=== PATIENT | female | born 1940 | race Caucasian/White ===

== ENCOUNTER → 2018-03-03 14:53 | Outpatient (CLI) | payer MEDICARE, SELFPAY ==
--- NOTE | 2018-03-03 | DI.MRI.S_ITS ---
PROCEDURE: MR KNEE LT WO CON INDICATIONS: PRIMARY OSTEOARTHRITIS OF LEFT KNEE. PAIN TECHNIQUE: Noncontrast sagittal PD fast spin echo and T2 fast spin echo with fat saturation, sagittal 3-D FLASH with fat saturation; coronal T1 spin echo and PD fast spin echo with fat saturation, and axial PD fast spin echo with fat saturation through the knee. COMPARISON: None. FINDINGS: Image quality: Excellent. Menisci: Medial extrusion of the medial meniscus. Severe degenerative tearing and fragmentation of the medial and lateral menisci. Cruciate ligaments: The posterior cruciate ligament is intact. Full-thickness anterior cruciate ligament tearing is present. Medial structures: The medial collateral ligament demonstrates mild T2 signal elevation at the femoral insertion site and moderate surrounding T2 signal elevation. The posterior oblique ligament, semimembranosus tendon insertions, oblique popliteal ligament, and meniscocapsular junction appear intact. Visualized portions of the pes anserinus tendons appear normal. Mild T2 signal elevation adjacent to the tibial insertion of the semimembranosus. No abnormal bursal fluid. Lateral structures: The lateral collateral ligament demonstrates mild T2 signal elevation at the femoral insertion site. The long and short heads of the biceps femoris tendon appear intact. The popliteus tendon appears normal; the popliteofibular ligament appears intact. The posterosuperior and anteroinferior popliteomeniscal fascicles appear intact. The arcuate and fabellofibular ligaments appear intact, on either side of the lateral inferior geniculate artery. Iliotibial band appears normal. Anterior structures: The quadriceps and patellar tendons appear intact. Patellar alignment is normal. No femoral trochlear dysplasia or ventral trochlear prominence. No edema in the infrapatellar fat pad. Bones and cartilage: No bone marrow contusions or fractures. Severe tricompartmental periarticular osteophyte formation is present. Multiple subchondral cysts and mild degenerative marrow edema within the weightbearing aspect of the medial lateral femoral condyles, and medial and lateral tibial plateaus. Severe diffuse articular cartilage loss overlies the weightbearing aspects of the medial and lateral compartments. Moderate articular cartilage loss overlies the lateral patellar facet and lateral femoral trochlea. Mild articular cartilage loss overlies the medial femoral trochlea. Joint space: There is a moderate knee joint effusion and a small Patino's cyst. Multiple intra-articular loose bodies are present, predominantly located within the suprapatellar recess, largest of which measures 12 mm diameter. 35mm ganglion cyst at the posterior aspect of the intercondylar notch is present. Normal appearing synovial plicae are incidentally noted. IMPRESSION: 1. Severe tricompartmental osteoarthritis with associated articular cartilage loss. 2. Knee joint effusion and multiple intra-articular loose bodies. Small Patino's cyst. Small ganglion cyst posterior to the intercondylar notch. 3. Full-thickness anterior cruciate ligament tear. 4. Severe degenerative tearing and fragmentation of the medial and lateral menisci. 5. Partial-thickness tears of the medial and lateral collateral ligaments. 6. Insertional tendinitis of the semimembranosus. Dictated by: Bee Peng M.D. on 03/04/2018 at 9:43 Approved by: Bee Peng M.D. on 03/04/2018 at 9:53
== END ==
PROVIDERS: Family Provider Physician Assistant; PCP Physician Assistant; Visit Provider Orthopaedic Surgery
DX: S83.512A Sprain of anterior cruciate ligament of left knee, initial encounter (principal); M17.12 Unilateral primary osteoarthritis, left knee; M25.462 Effusion, left knee; M23.42 Loose body in knee, left knee; M71.22 Synovial cyst of popliteal space [Baker], left knee; M67.462 Ganglion, left knee; M23.201 Derangement of unspecified lateral meniscus due to old tear or injury, left knee; M23.204 Derangement of unspecified medial meniscus due to old tear or injury, left knee; M76.892 Other specified enthesopathies of left lower limb, excluding foot
CPT/HCPCS: 73721

== ENCOUNTER 2018-05-05 10:17 | Observation (INO) | payer MEDICARE, SELFPAY ==
[2018-04-18 10:37] VITALS: BMI 33.3
[2018-05-04] VITALS (15 sets, daily range): BP systolic 95–163; BP diastolic 43–86; PULSE 54–70; RESP 11–17; TEMP 35.8–37.1; O2SAT 94–100; BMI 33.3
--- NOTE | 2018-05-04 | DI.RAD.S_ITS ---
PROCEDURE: XR KNEE LT 1TO2V INDICATIONS: TOTAL LEFT KNEE TECHNIQUE: 2 view(s) of the knee acquired. COMPARISON: [facility], MR, MR KNEE LT WO CON, 03/03/2018, 15:11. FINDINGS: Bones: Patient is status post knee joint arthroplasty. Hardware components are in expected positions. Visualized bony structures are intact. Soft tissues: Overlying postoperative changes are noted. Expected postoperative changes within the overlying soft tissues are present there is a soft tissue edema, air, and fluid. No unexpected radiopaque foreign bodies are evident. Skin jonel are seen along the anterior midline aspect of the knee. IMPRESSION: Expected postsurgical changes related to a total left knee arthroplasty. Dictated by: Surjit Nuno M.D. on 05/04/2018 at 9:38 Approved by: Surjit Nuno M.D. on 05/04/2018 at 9:39
[2018-05-04] MEDS: ACETAMINOPHEN 325 MG TABLET 975 MG PO ×3 (07:01→20:23)
[2018-05-04] MEDS: PREGABALIN 75 MG CAPSULE PO (07:01)
[2018-05-04] MEDS: CELECOXIB 200 MG CAPSULE PO (07:03)
[2018-05-04] MEDS: LACTATED RINGERS 1,000 ML 42 ML IV (07:10)
--- NOTE | 2018-05-04 07:31 | SUR.PREOP ---
SERGE IN TO SEE PT AND IN AWARE OF THE SMALL SKKIN
--- NOTE | 2018-05-04 07:31 | SUR.PREOP ---
DR VALENTINE IN TO SEE PT AND IS AWARE AND ASSESSED THE SKIN SCRAPS/ ABRASIONS ON THE LEFT KNEE.
--- NOTE | 2018-05-04 07:39 | PM.PREOP ---
Pre-operative Note Interval Note Pre-op Check: Yes History & Physical Reviewed by Physician and Yes Exam Performed Changes: Yes H&P completed within 30 days and has changed as indicated here:: Slight healed rash on lateral knee. No signs of infection.
--- NOTE | 2018-05-04 07:41 | PM.OP.1 ---
Operative Date/Time/Diagnoses Date of procedure: 05/04/18 Time of procedure: 09:59 Pre-op diagnosis: Severe left knee osteoarthritis Post-op diagnosis: same Procedure & Clinicians Procedure: Left total knee arthroplasty Same procedure as scheduled: Yes Indications: The patient presents today for total knee arthroplasty after failure of conservative treatment. The nature of the procedure including the risks and benefits, alternatives, postoperative course and expected outcome were discussed and all questions answered. Consent was obtained. Operative site confirmed and marked. Surgeon: Hipolito Albarran River Rafting Guide: Mike Schumacher Anesthesia Type: General, Spinal and Local Operative Notes Findings: Severe arthritis with a valgus wear pattern. The bone was extremely softer. Closure Type: primary Specimen(s): none sent Implants & Drains: [employer] BCS: 6 femoral component, 5 tibial component, 9 mm BCS polyethylene tray and 35 x 9 mm round patella Applied: implant(s) Blood products transfused: none Tourniquet time (min): 22 Procedure in detail: The patient was taken to the operative suite and placed under spinal anesthesia. The patient was given prophylactic antibiotics prior to surgery. The patient was also given tranexamic acid, 1 g, just prior to surgery for postoperative hemostasis. The lateral knee was prepped and the joint injected with 20 mL of 1% Lidocaine with epinephrine. The knee was then prepped and draped in usual sterile fashion. The leg was exsanguinated with an Esmarch dressing and the tourniquet raised to 250 torr. A 15 cm anterior incision was made. Next a medial trivector arthrotomy was made. The extensor mechanism was marked to ensure accurate repair. Initial exposing dissection was carried out medially and laterally. The knee was then extended and the patellar thickness was measured and a cut made removing approximately 9 mm of bone. The patella was then sized and drilled. Some excess lateral bone was excised and the patellofemoral ligament released. The knee was then flexed and the intramedullary femoral guide juana placed. The distal femoral cut was made in 6 ? of valgus at the + 0 position. The femoral size was measured and the appropriate cutting block was then placed and the anterior, posterior and chamfer cuts made. The extra medullary tibial alignment juana was then placed along the anatomic axis of the tibia appropriating the normal slope. The guide was set to remove approximately 8 mm from the less affected medial side. The proximal tibial cut was then made with an oscillating saw. All meniscus and bony debris was then removed. Flexion extension gaps were checked. The knee was tight laterally in flexion and extension as expected from her wear pattern. The knee was also tighter in extension and flexion. Two more mm of distal femur were resected. A lateral release was performed using a 15 blade in a pie crust technique. This nicely even the medial lateral gaps both in flexion and extension. The soft tissues were then injected with a combination of 20 mL of half percent Marcaine with epinephrine and 20 mL of Exparel. The trial components were then placed. The knee went into full extension and flexion beyond 120?. There was excellent medial- lateral balance throughout motion. Patellar tracking was excellent. The trial components were removed and the knee was cleansed with Pulsavac irrigation and dried. The final components were cemented in with high viscosity vacuum mixed bone cement with antibiotics. The knee was held in extension and the patellar clamp until the cement had adequately cured. The knee was irrigated and inspected for any further debris. The knee was then irrigated with dilute Betadine solution. The extensor mechanism was closed with 5 interrupted #1 Vicryl sutures in 90 degrees of flexion. The joint was then injected with a combination of 1 g of tranexamic acid and 20 mL of quarter percent Marcaine with epinephrine. The subcutaneous tissue was closed with 2-0 Vicryl. The skin was closed with jonel and surgical adhesive. An Aquacell dressing and Keyur wrap were then applied. The patient tolerated the procedure well and was returned to recovery room in good condition. Complications: none Condition: stable Disposition: PACU Plan for aftercare: [facility] protocol. Plan discharge to home tomorrow.
[2018-05-04] MEDS: CEFAZOLIN 1 GM VIAL 2 GM IV (07:50)
[2018-05-04] MEDS: LIDOCAINE 1% W/EPI INJ 20 ML INJ (08:26)
--- NOTE | 2018-05-04 08:51 | SUR.OPER ---
Supine on padded OR bed. Pillow under head, arms secured on padded armboards <90 degree abduction. Safety belt across torso. Non-operative leg secured with tape over blanket over lower leg. Operative leg secured in DeMayo/Artie positioner. Foam padded brace at thigh of operative leg.
[2018-05-04] MEDS: TRANEXAMIC ACID 1,000 MG VIAL 2000 MG INJ (09:04)
[2018-05-04] MEDS: BUPIVACAINE 0.5% W/ EPI (PF) 20 ML, BUPIVACAINE LIPOSOME 266 MG, SODIUM CHLORIDE 0.9% 2... INJ (09:05)
[2018-05-04] MEDS: POVIDONE-IODINE 15 ML, SODIUM CHLORIDE 0.9% 250 ML TOP (09:06)
[2018-05-04] MEDS: ONDANSETRON 4 MG/2 ML INJ IV (10:16)
[2018-05-04] MEDS: LACTATED RINGERS 1,000 ML 125 ML IV ×2 (12:11→19:39)
[2018-05-04] MEDS: CHOLESTYRAMINE/ASPARTAME 4 GM PACK PO (12:12)
--- NOTE | 2018-05-04 12:24 | PC.ADMIT ---
Addendum entered by Whit Mendez R.N. 05/04/18 15:42: Pt remains without nausea, restarted home cholstrine drink mix, per Pt request. Hx of chronic diarrhea. Original Note: Admission Note: The patient,Tammy Cordero,77 y/o, was given written information regarding hospital policies, unit procedures and contact persons. Patient's smoking status: Never smoker. Daughter at bedside for review of policies. Denies nausea, snacking, BT active and lungs CTA. Cont pulse ox in place, RA 98% Pt aware of POC, [facility] Patient. Reviewed plans for pain control and mobilizing today. BA for increased fall risk. Fall with injury to R shoulder this year, delaying this procedure. Call light in reach. Vital Signs - 8 hr 05/04/18 07:06 05/04/18 10:00 05/04/18 10:05 Temperature 98.2 F 98.8 F Pulse Rate 70 64 63 Respiratory Rate 16 17 12 Blood Pressure 163/86 H 121/70 107/59 L Pulse Oximetry 100 96 95 05/04/18 10:10 05/04/18 10:15 05/04/18 10:20 Temperature Pulse Rate 62 62 60 Respiratory Rate 12 11 L 14 Blood Pressure 100/52 L 108/55 L 111/54 L Pulse Oximetry 94 94 95 05/04/18 10:35 Temperature Pulse Rate 60 Respiratory Rate 16 Blood Pressure 106/62 Pulse Oximetry 94
--- NOTE | 2018-05-04 14:55 | CM.DANOTE ---
Addendum entered by Makayla Mesa LPN 05/05/18 11:49: Met with pt this morning as planned after discussion of case in morning Team Rounds. Introduced self and role to pt and to her daughter Yaritza. Pt confirms she does very much want to go home today. She said the ortho PA was in early this morning and gave order for d/c but only if PT says you can go. Pt has done well with PT thus far. Both do note that their main concern at this time is management of the car transfers. They have not yet discussed this with anyone. RN Whit is updated and SECTION SUPERVISOR Yolette is notified so that she can pass along this information to the therapy team for a focus in the afternoon session today. Pt has OUTPT therapy set up. P: home, likely today, if PT gives final ok Original Note: Discharge Planning/Care Management DCP: assessment: Case received, EMR reviewed and went to room this morning to check in with pt. She was still in surgery. Pt is a 77 year old female who admitted today for a planned L TKA. Admission status: confirmed by UR JASON Mcmillan as SDC. Payer: Medicare and [employer]. Pt is . Expect PT to see pt. Will plan to check in tomorrow to see pt and have a discussion re her d/c plan/ issues and options. CM Discharge Assessment Start: 05/04/18 14:54 Freq: Status: Active Protocol: Document 05/04/18 14:54 ITV (Rec: 05/04/18 14:55 ITV [id number]) Discharge Planning Assessment History Provided By Medical Record Prior Living Arrangements House Whiteboard Updated in Patient Room with Yes name and ext. # of Supervisor Real Estate Office Review Status In Process Next Review Type Continued Stay Review
[2018-05-04] MEDS: CEFAZOLIN 2 GM/100 ML FROZ.PIGGY IV (15:41)
--- NOTE | 2018-05-04 16:12 | PT.IIE ---
Current Diagnoses Unilateral primary osteoarthritis, left knee (05/04/18) Surgery Performed Operation Date: 05/04/18 07:45 Actual Procedures p Total Knee Arthroplasty(Left) - Hipolito Albarran MD Surgical History (Last Updated 04/18/18 @ 11:40 by Isabel Machado, RN) History of arthroplasty of right knee (Acute) History of colonoscopy (Acute) History of phacoemulsification of cataract of right eye with intraocular lens implantation (Acute) Hx of appendectomy (Acute) Hx of cholecystectomy (Acute) Hx of esophagogastroduodenoscopy (Acute) Hx of gastric bypass (Acute) Hx of tubal ligation (Acute) Status post cataract extraction and insertion of intraocular lens of left eye (Acute) Medical History (Last Updated 04/18/18 @ 11:23 by Isabel Machado RN) Barretts esophagus (Acute) Chronic diarrhea (Acute) Diabetes (Acute) E-coli UTI (Acute) GERD (gastroesophageal reflux disease) (Acute) Gout (Acute) HTN (hypertension) (Acute) Hypothyroid (Acute) Influenza B (Acute) Injected eye, left (Acute) Insomnia (Acute) Kidney stones (Acute) Nephrolithiasis (Acute) Pneumonia (Acute) Physical Therapy Inpatient Evaluation/Re-Eval M1 PT/OT-IP Prior Functional Status Start: 05/04/18 17:29 Freq: NEEDED Status: Active Protocol: Document 05/04/18 16:12 AB (Rec: 05/04/18 17:42 AB [id number]) Medical Review Prior Functional Status Medical History Reviewed Yes Communication able to make needs known Mobility and Gait pt stated that she is modified independent with all mobilities and ambulation using SPC Social History Household Members children Living Arrangements House Number of Floors (Floors) One Floor Number of Stairs To Enter/Railing? 2 steps to enter with R rail ascending Home Environment High Toilet Tub/Shower Home Equipment Hand Held Shower Grab Bars In Shower Employment Status Retired Additional Social History Comment pt lives with daughter and her daughter will be able to assist pt at home. M2 PT-IP Current Condition Start: 05/04/18 17:29 Freq: NEEDED Status: Active Protocol: Document 05/04/18 16:12 AB (Rec: 05/04/18 17:42 AB [id number]) Physical Therapy Current Condition Current Condition Evaluation Date 05/04/18 Treatment Diagnosis s/p L TKA Onset Date 05/04/18 Weight Bearing Status Weight Bearing Status Weight Bear as Tolerated M3 PT-IP Subjective Start: 05/04/18 17:29 Freq: NEEDED Status: Active Protocol: Document 05/04/18 16:12 AB (Rec: 05/04/18 17:42 AB [id number]) Subjective Physical Therapy Visit Type Type Initial Evaluation Visit Start Time 16:12 Visit Stop Time 16:40 Total Visit Minutes 28 Number of BODY MAKER Visits 0 Physical Therapy Visit Comments Patient Comments pt agreeable to do PT Therapy Pain Assessment Pain When Pain Assessed During Mobility Pain Present Pain Present Pain Reported Location Left Knee Intensity 4 Scale Used Numeric (1 - 10) Description Throbbing Pain Management Techniques Apply Cold Timing of Activity with Medications M4 PT-IP Mobility and Gait Start: 05/04/18 17:29 Freq: NEEDED Status: Active Protocol: Document 05/04/18 16:12 AB (Rec: 05/04/18 17:42 AB [id number]) PT-Bed Mobility Assessment Supine to Sit Supine to Sit Standby Assistance Sit to Supine Sit to Supine Standby Assistance Scooting Scooting to Edge of Bed Standby Assistance PT-Transfer Assessment Sit to and From Stand Sit to and from Stand Contact Guard Assistance Equipment Transfer Assistive Device Gait Belt Front Wheeled Walker Orthotic/Prosthetic Devices or Brace: No Transfers Transfer Destination Bed Chair Bedside Commode Transfer Technique Stand Step Pivot Transfer Ability Level of Assist Minimal Assistance 1 Person Assistance Use of Upper Extremities Comments Mobility Comments pt found sitting on bedside commode and PT assisted pt back to bed using FWW min A and cues. pt completed sit <>stand x 3 CGA and cues for techniques. pt transferred from bed to chair using FWW min A and cues . Gait Assessment Gait Gait Assistance Required: Minimum Assistance Distance (Feet) 30 Able to Maintain Weight Bearing Status Yes During Gait Assistive Devices Assistive Device Gait Belt Front Wheeled Walker Orthotic/Prosthetic Devices or Brace: No Gait Deviations General Gait Pattern Antalgic Decreased Stride Length Decreased Feet Clearance Factors Limiting Gait Function Factors Limiting Gait Function Decreased Strength Pain Poor Balance PT-Balance Assessment Sitting Balance and Reactions Static Sitting Balance Ability Good Dynamic Sitting Balance Ability Good Standing Balance and Reactions Static Standing Balance Ability Fair Dynamic Standing Balance Ability Fair Device Used FWW M5 PT-IP Objective Assessments Start: 05/04/18 17:29 Freq: NEEDED Status: Active Protocol: Document 05/04/18 16:12 AB (Rec: 05/04/18 17:42 AB [id number]) Orientation Orientation/Cognition Level of Alertness Alert Orientation Name Age Birthday Month Date Year Day of Week Place Situation Safety Awareness Understands Safety Issues Gross Range of Motion Lower Extremity ROM Assessment Left Impaired Strength Lower Extremity Strength Assessment Left Impaired Knee 3+/5 Sensation Assessment Sensation Gross Sensation Right LE Impaired Left LE Impaired Sensation Description Tingling Comments Sensation Comments stated that she has peripheral neuropathy Muscle Tone Muscle Tone WNL Yes M6 PT-IP Treatment Start: 05/04/18 17:29 Freq: NEEDED Status: Active Protocol: Document 05/04/18 16:12 AB (Rec: 05/04/18 17:42 AB [id number]) Physical Therapy Treatment Education Education Provided Precautions Weight Bearing Status Post-Op Packet Safety M7 PT-IP Assessment and Plan Start: 05/04/18 17:29 Freq: NEEDED Status: Active Protocol: Document 05/04/18 16:12 AB (Rec: 05/04/18 17:42 AB [id number]) PT Summary Assessment and Plan Potential Rehabilitation Potential Good Status of Condition at Evaluation Stable Summary Impairments Pain ROM Strength Balance Coordination Sensation Tone Cognition Bed Mobility Transfers Gait Activity Tolerance Assessment Summary pt rquiring min A and cues for mobility and will likely progress with mobility during hospital stay. pt plans to go home with her daughter to assist her. Goals Bed Mobility Goal Independent Transfer Goal Standby Assistance Gait Goal Standby Assistance Gait Distance 150 Other Goals up/down 2 steps using R rail ascending SBA Days to Meet Goals 3 Frequency of Treatment Frequency Of Treatment Twice a Day Treatment Plan Physical Therapy Treatment Plan Bed Mobility Training Transfer Training Gait Training Therapeutic Exercise Balance Retraining Post Op Education Discharge Planning Hot or Cold Pack Neuromuscular Re-ed Coordination Retraining Manual Therapy Other Recommendations and Next Treatment ambulation, stair climbing, Focus caregiver training Recommendations To Nursing Amount of Assist Needed 1 Person Assist Discharge Recommendations PT Discharge Recommendations Home with Assistance Outpatient PT
--- NOTE | 2018-05-04 16:12 | PT.IIE ---
Current Diagnoses Unilateral primary osteoarthritis, left knee (05/04/18) Surgery Performed Operation Date: 05/04/18 07:45 Actual Procedures p Total Knee Arthroplasty(Left) - Hipolito Albarran MD Surgical History (Last Updated 04/18/18 @ 11:40 by Isabel Machado RN) History of arthroplasty of right knee (Acute) History of colonoscopy (Acute) History of phacoemulsification of cataract of right eye with intraocular lens implantation (Acute) Hx of appendectomy (Acute) Hx of cholecystectomy (Acute) Hx of esophagogastroduodenoscopy (Acute) Hx of gastric bypass (Acute) Hx of tubal ligation (Acute) Status post cataract extraction and insertion of intraocular lens of left eye (Acute) Medical History (Last Updated 04/18/18 @ 11:23 by Isabel Machado RN) Barretts esophagus (Acute) Chronic diarrhea (Acute) Diabetes (Acute) E-coli UTI (Acute) GERD (gastroesophageal reflux disease) (Acute) Gout (Acute) HTN (hypertension) (Acute) Hypothyroid (Acute) Influenza B (Acute) Injected eye, left (Acute) Insomnia (Acute) Kidney stones (Acute) Nephrolithiasis (Acute) Pneumonia (Acute) Physical Therapy Inpatient Evaluation/Re-Eval M1 PT/OT-IP Prior Functional Status Start: 05/04/18 17:29 Freq: NEEDED Status: Active Protocol: Document 05/04/18 16:12 AB (Rec: 05/04/18 17:42 AB [id number]) Medical Review Prior Functional Status Medical History Reviewed Yes Communication able to make needs known Mobility and Gait pt stated that she is modified independent with all mobilities and ambulation using SPC Prior Functional Level (Other details) statd that she usually use a L foot brace to support her foot because it wants to bottom turner on her. stated that her doctor said that it is ok for her not to use it for now while her L knee is recovering . Social History Household Members children Living Arrangements House Number of Floors (Floors) One Floor Number of Stairs To Enter/Railing? 2 steps to enter with R rail ascending Home Environment High Toilet Tub/Shower Home Equipment Hand Held Shower Grab Bars In Shower Employment Status Retired Additional Social History Comment pt lives with daughter and her daughter will be able to assist pt at home. M2 PT-IP Current Condition Start: 05/04/18 17:29 Freq: NEEDED Status: Active Protocol: Document 05/04/18 16:12 AB (Rec: 05/04/18 17:42 AB [id number]) Physical Therapy Current Condition Current Condition Evaluation Date 05/04/18 Treatment Diagnosis s/p L TKA Onset Date 05/04/18 Weight Bearing Status Weight Bearing Status Weight Bear as Tolerated M3 PT-IP Subjective Start: 05/04/18 17:29 Freq: NEEDED Status: Active Protocol: Document 05/04/18 16:12 AB (Rec: 05/04/18 17:42 AB [id number]) Subjective Physical Therapy Visit Type Type Initial Evaluation Visit Start Time 16:12 Visit Stop Time 16:40 Total Visit Minutes 28 Number of MEDICAL TECHNICIANS Visits 0 Physical Therapy Visit Comments Patient Comments pt agreeable to do PT Therapy Pain Assessment Pain When Pain Assessed During Mobility Pain Present Pain Present Pain Reported Location Left Knee Intensity 4 Scale Used Numeric (1 - 10) Description Throbbing Pain Management Techniques Apply Cold Timing of Activity with Medications M4 PT-IP Mobility and Gait Start: 05/04/18 17:29 Freq: NEEDED Status: Active Protocol: Document 05/04/18 16:12 AB (Rec: 05/04/18 17:42 AB [id number]) PT-Bed Mobility Assessment Supine to Sit Supine to Sit Standby Assistance Sit to Supine Sit to Supine Standby Assistance Scooting Scooting to Edge of Bed Standby Assistance PT-Transfer Assessment Sit to and From Stand Sit to and from Stand Contact Guard Assistance Equipment Transfer Assistive Device Gait Belt Front Wheeled Walker Orthotic/Prosthetic Devices or Brace: No Transfers Transfer Destination Bed Chair Bedside Commode Transfer Technique Stand Step Pivot Transfer Ability Level of Assist Minimal Assistance 1 Person Assistance Use of Upper Extremities Comments Mobility Comments pt found sitting on bedside commode and PT assisted pt back to bed using FWW min A and cues. pt completed sit <>stand x 3 CGA and cues for techniques. pt transferred from bed to chair using FWW min A and cues . Gait Assessment Gait Gait Assistance Required: Minimum Assistance Distance (Feet) 30 Able to Maintain Weight Bearing Status Yes During Gait Assistive Devices Assistive Device Gait Belt Front Wheeled Walker Orthotic/Prosthetic Devices or Brace: No Gait Deviations General Gait Pattern Antalgic Decreased Stride Length Decreased Feet Clearance Factors Limiting Gait Function Factors Limiting Gait Function Decreased Strength Pain Poor Balance PT-Balance Assessment Sitting Balance and Reactions Static Sitting Balance Ability Good Dynamic Sitting Balance Ability Good Standing Balance and Reactions Static Standing Balance Ability Fair Dynamic Standing Balance Ability Fair Device Used FWW M5 PT-IP Objective Assessments Start: 05/04/18 17:29 Freq: NEEDED Status: Active Protocol: Document 05/04/18 16:12 AB (Rec: 05/04/18 17:42 AB [id number]) Orientation Orientation/Cognition Level of Alertness Alert Orientation Name Age Birthday Month Date Year Day of Week Place Situation Safety Awareness Understands Safety Issues Gross Range of Motion Lower Extremity ROM Assessment Left Impaired Strength Lower Extremity Strength Assessment Left Impaired Knee 3+/5 Sensation Assessment Sensation Gross Sensation Right LE Impaired Left LE Impaired Sensation Description Tingling Comments Sensation Comments stated that she has peripheral neuropathy Muscle Tone Muscle Tone WNL Yes M6 PT-IP Treatment Start: 05/04/18 17:29 Freq: NEEDED Status: Active Protocol: Document 05/04/18 16:12 AB (Rec: 05/04/18 17:42 AB [id number]) Physical Therapy Treatment Education Education Provided Precautions Weight Bearing Status Post-Op Packet Safety M7 PT-IP Assessment and Plan Start: 05/04/18 17:29 Freq: NEEDED Status: Active Protocol: Document 05/04/18 16:12 AB (Rec: 05/04/18 17:42 AB [id number]) PT Summary Assessment and Plan Potential Rehabilitation Potential Good Status of Condition at Evaluation Stable Summary Impairments Pain ROM Strength Balance Coordination Sensation Tone Cognition Bed Mobility Transfers Gait Activity Tolerance Assessment Summary pt rquiring min A and cues for mobility and will likely progress with mobility during hospital stay. pt plans to go home with her daughter to assist her. Goals Bed Mobility Goal Independent Transfer Goal Standby Assistance Gait Goal Standby Assistance Gait Distance 150 Other Goals up/down 2 steps using R rail ascending SBA Days to Meet Goals 3 Frequency of Treatment Frequency Of Treatment Twice a Day Treatment Plan Physical Therapy Treatment Plan Bed Mobility Training Transfer Training Gait Training Therapeutic Exercise Balance Retraining Post Op Education Discharge Planning Hot or Cold Pack Neuromuscular Re-ed Coordination Retraining Manual Therapy Other Recommendations and Next Treatment ambulation, stair climbing, Focus caregiver training Recommendations To Nursing Amount of Assist Needed 1 Person Assist Discharge Recommendations PT Discharge Recommendations Home with Assistance Outpatient PT
[2018-05-04] MEDS: PANTOPRAZOLE 20 MG TABLET PO (19:39)
[2018-05-04] MEDS: OXYCODONE IR 5 MG TABLET PO (19:44)
[2018-05-04] MEDS: NEBIVOLOL 10 MG TABLET PO (20:22)
[2018-05-04] MEDS: ASPIRIN EC 81 MG TABLET PO (20:22)
[2018-05-05] VITALS: BP 122/67; PULSE 60; RESP 17; TEMP 36.3; O2SAT 98
[2018-05-05] MEDS: CEFAZOLIN 2 GM/100 ML FROZ.PIGGY IV (00:48)
[2018-05-05] MEDS: OXYCODONE IR 5 MG TABLET PO ×4 (00:58→18:04)
[2018-05-05] MEDS: LACTATED RINGERS 1,000 ML 125 ML IV (04:21)
[2018-05-05 04:30] VITALS: BP 158/72
[2018-05-05] MEDS: LEVOTHYROXINE 100 MCG TABLET PO (05:40)
[2018-05-05] MEDS: IBUPROFEN 600 MG TABLET PO (05:45)
--- NOTE | 2018-05-05 06:50 | PC.NURSE ---
around 4:30 am pt had some chills. pt's VSS. gave her some advil for pain. pt's scheduled gabapentin dosage need to be changed to 300mg in AM and 900mg @ HS.
[2018-05-05 07:00] VITALS: BP 147/71; PULSE 72; RESP 16; TEMP 36.4; O2SAT 98
[2018-05-05 07:19] LABS: Hematocrit 35.6 % (36-46); Hemoglobin 11.8 g/dL (12.0-16.0)
--- NOTE | 2018-05-05 07:43 | PM.DS.1 ---
History of Present Illness Date Patient Seen: 05/05/18 Time Patient Seen: 07:34 Chief complaint: [id number] Narrative: The patient presented for total knee arthroplasty after failure of conservative treatment on 05/04/18. The nature of the procedure including the risks and benefits, alternatives, postoperative course and expected outcome were discussed and all questions answered. Consent was obtained. Operative site confirmed and marked. Patient was seen bedside status post day 1 from L TKA with Dr. Albarran. Patient is doing well and pain is well controlled. She denies chest pain, SOB, fever, nausea, vomiting or chills. Discharge Providers Date of admission: 05/04/18 06:09 Primary care physician: Elizabeth Fink PA-C Consults: 05/04/18 10:54 Consult to Discharge Planning Routine Comment: Consult to Physical Therapy Evaluate & Treat Comment: Physician Instructions: postop TKA protocol Consult to Respiratory Therapy Evaluate & Treat Comment: Physician Instructions: Evaluate and treat Discharge provider: Mary Mendoza PA-C Summary Discharge Diagnosis: Severe left knee osteoarthritis Hospital Course: Patient was admitted status post L TKA on 05/04/[address] Albarran. Patient tolerated procedure well with no major complications. Patient transferred to the floor and seen by physical therapy who recommended she be discharged home with outpatient PT. Her pain was well controlled with oxycodone 5mg. Patient daughter is home to assist her. Patient is stable and ready for discharge on 05/05/18. [facility] patient. Status at Discharge Functional status at discharge: uses cane/walker Overall status at discharge: patient is progressing back to baseline Time Spent with Patient Less than 30 minutes Exam Vital Signs (past 8 hours): - 05/05/18 00:00 05/05/18 04:30 Temperature 97.3 F L Pulse Rate 60 Respiratory Rate 17 Blood Pressure 122/67 158/72 H Pulse Oximetry 98 Fraction of Inspired Oxygen 21 Oxygen Delivery Method Room Air Oxygen Flow Rate 0 Narrative Exam Narrative: Patient is laying in bed comfortable with no signs of distress. AOx3. Dorsalis pedis and radial pulses 2+ and symmetric. She is actively able to move LE bilaterally. Dosiflexion, plantarflexion and event services manager is 5/5 with muscle strength bilaterally. DVT compression device noted on LE bilaterally. Small lump noted on lateral ankles bilaterally; present prior to surgery. Sensation to light touch intact bilaterally on LE. Calfs are soft, non tender and compressible. FINA bandage intact on L knee. Objective Labs Result Diagrams: 05/05/18 06:33 Labs: Laboratory Results - last 24 hr 05/05/18 06:33 Hgb 11.8 L Hct 35.6 L Discharge Plan Discharge Plan Patient Disposition: Home Discharge Med Rec/Prescriptions Prescriptions: Continue metformin [Glucophage] 500 mg Tablet 1,500 mg PO DAILY Qty: 0 RF: 0 allopurinol 100 mg Tablet 100 mg PO DAILY Qty: 0 RF: 0 hydrocodone-acetaminophen 10-325 mg Tablet 1 tab PO BID RF: 0 temazepam 15 mg Capsule 15 mg PO BEDTIME PRN (Reason: Sleep) RF: 0 gabapentin [Neurontin] 300 mg Capsule 900 mg PO DAILY RF: 0 omeprazole 20 mg Capsule,Delayed Release(Dr/Ec) 20 mg PO BID RF: 0 dorzolamide-timolol 22.3-6.8 mg/mL Drops 1 drp EYE-RIGHT BID RF: 0 hydrochlorothiazide 25 mg Tablet 25 mg PO DAILY RF: 0 cholestyramine (with sugar) 4 gram Powder In Packet 4 g PO QAM RF: 0 nebivolol [Bystolic] 10 mg Tablet 10 mg PO BEDTIME RF: 0 levothyroxine 100 mcg Capsule 100 mcg PO QAM RF: 0 Changed aspirin 81 mg Tablet,Delayed Release (Dr/Ec) 81 mg PO BID Qty: 0 RF: 0 Follow up/Referrals: Elizabeth Fink PA-C [Primary Care Provider] - (please call & schedule follow up appointment with jesus solorzano @ [facility] [phone] ) Hipolito Albarran MD [Physician] - ([place] [facility]ran at scheduled appointment.) Provider Discharge Instructions Diet: Carb-consistent/Diabetic Activity: Weight bearing as tolerated Cold/Heat Therapy: cold compress as needed. Skin/Wound/Dressing Care Report to your healthcare provider any signs of infection, such as:: chills, fever, night sweats, increased pain and unusual drainage Dressing: keep clean and dry Visit Report/Discharge Packet Visit Report Forms: Stroke Signs & Symptoms Discharge Data Primary Care Provider: Elizabeth Fink Attending Provider: Hipolito Albarran Admit Date/Time: 05/04/18 06:09
[2018-05-05] MEDS: CHOLESTYRAMINE/ASPARTAME 4 GM PACK PO (07:45)
--- NOTE | 2018-05-05 07:54 | P.DS_ITS ---
History of Present Illness Date Patient Seen: 05/05/18 Time Patient Seen: 07:34 Chief complaint: [id number] Narrative: The patient presented for total knee arthroplasty after failure of conservative treatment on 05/04/18. The nature of the procedure including the risks and benefits, alternatives, postoperative course and expected outcome were discussed and all questions answered. Consent was obtained. Operative site confirmed and marked. Patient was seen bedside status post day 1 from L TKA with Dr. Albarran. Patient is doing well and pain is well controlled. She denies chest pain, SOB, fever, nausea, vomiting or chills. Discharge Providers Date of admission: 05/04/18 06:09 Primary care physician: Elizabeth Fink PA-C Consults: 05/04/18 10:54 Consult to Discharge Planning Routine Comment: Consult to Physical Therapy Evaluate & Treat Comment: Physician Instructions: postop TKA protocol Consult to Respiratory Therapy Evaluate & Treat Comment: Physician Instructions: Evaluate and treat Discharge provider: Mary Mendoza PA-C Summary Discharge Diagnosis: Severe left knee osteoarthritis Hospital Course: Patient was admitted status post L TKA on 05/04/[address] Albarran. Patient tolerated procedure well with no major complications. Patient transferred to the floor and seen by physical therapy who recommended she be discharged home with outpatient PT. Her pain was well controlled with oxycodone 5mg. Patient daughter is home to assist her. Patient is stable and ready for discharge on 05/05/18. [facility] patient. Status at Discharge Functional status at discharge: uses cane/walker Overall status at discharge: patient is progressing back to baseline Time Spent with Patient Less than 30 minutes Exam Vital Signs (past 8 hours): - 05/05/18 00:00 05/05/18 04:30 Temperature 97.3 F L Pulse Rate 60 Respiratory Rate 17 Blood Pressure 122/67 158/72 H Pulse Oximetry 98 Fraction of Inspired Oxygen 21 Oxygen Delivery Method Room Air Oxygen Flow Rate 0 Narrative Exam Narrative: Patient is laying in bed comfortable with no signs of distress. AOx3. Dorsalis pedis and radial pulses 2+ and symmetric. She is actively able to move LE bilaterally. Dosiflexion, plantarflexion and assistant art director is 5/5 with muscle strength bilaterally. DVT compression device noted on LE bilaterally. Small lump noted on lateral ankles bilaterally; present prior to surgery. Sensation to light touch intact bilaterally on LE. Calfs are soft, non tender and compressible. FINA bandage intact on L knee. Objective Labs Result Diagrams: 05/05/18 06:33 Labs: Laboratory Results - last 24 hr 05/05/18 06:33 Hgb 11.8 L Hct 35.6 L Discharge Plan Discharge Plan Patient Disposition: Home Discharge Med Rec/Prescriptions Prescriptions: Continue metformin [Glucophage] 500 mg Tablet 1,500 mg PO DAILY Qty: 0 RF: 0 allopurinol 100 mg Tablet 100 mg PO DAILY Qty: 0 RF: 0 hydrocodone-acetaminophen 10-325 mg Tablet 1 tab PO BID RF: 0 temazepam 15 mg Capsule 15 mg PO BEDTIME PRN (Reason: Sleep) RF: 0 gabapentin [Neurontin] 300 mg Capsule 900 mg PO DAILY RF: 0 omeprazole 20 mg Capsule,Delayed Release(Dr/Ec) 20 mg PO BID RF: 0 dorzolamide-timolol 22.3-6.8 mg/mL Drops 1 drp EYE-RIGHT BID RF: 0 hydrochlorothiazide 25 mg Tablet 25 mg PO DAILY RF: 0 cholestyramine (with sugar) 4 gram Powder In Packet 4 g PO QAM RF: 0 nebivolol [Bystolic] 10 mg Tablet 10 mg PO BEDTIME RF: 0 levothyroxine 100 mcg Capsule 100 mcg PO QAM RF: 0 Changed aspirin 81 mg Tablet,Delayed Release (Dr/Ec) 81 mg PO BID Qty: 0 RF: 0 Follow up/Referrals: Elizabeth Fink PA-C [Primary Care Provider] - (please call & schedule follow up appointment with jesus solozrano @ [facility] [phone] ) Hipolito Albarran MD [Physician] - (Follow up at [facility] [place]. Albarran at scheduled appointment.) Provider Discharge Instructions Diet: Carb-consistent/Diabetic Activity: Weight bearing as tolerated Cold/Heat Therapy: cold compress as needed. Skin/Wound/Dressing Care Report to your healthcare provider any signs of infection, such as:: chills, fever, night sweats, increased pain and unusual drainage Dressing: keep clean and dry Visit Report/Discharge Packet Visit Report Forms: Stroke Signs & Symptoms Discharge Data Primary Care Provider: Elizabeth Fink Attending Provider: Hipolito Albarrna Admit Date/Time: 05/04/18 06:09
[2018-05-05] MEDS: ACETAMINOPHEN 325 MG TABLET 975 MG PO ×3 (09:03→20:30)
[2018-05-05] MEDS: ASPIRIN EC 81 MG TABLET PO ×2 (09:03→20:30)
[2018-05-05] MEDS: METFORMIN HCL 500 MG TABLET PO (09:10)
[2018-05-05] MEDS: hydroCHLOROthiazide 25 MG TABLET PO (09:11)
[2018-05-05] MEDS: PANTOPRAZOLE 20 MG TABLET PO ×2 (09:11→20:30)
[2018-05-05] MEDS: ALLOPURINOL 100 MG TABLET PO (09:11)
[2018-05-05] MEDS: GABAPENTIN 300 MG CAPSULE 900 MG PO (09:12)
--- NOTE | 2018-05-05 09:22 | PT.IPTN ---
Current Diagnoses Unilateral primary osteoarthritis, left knee (05/04/18) Surgery Performed Operation Date: 05/04/18 07:45 Actual Procedures p Total Knee Arthroplasty(Left) - Hipolito Albarran MD Physical Therapy Treatment Note M2 PT-IP Current Condition Start: 05/04/18 17:29 Freq: NEEDED Status: Active Protocol: Document 05/04/18 16:12 AB (Rec: 05/04/18 17:42 AB [id number]) Physical Therapy Current Condition Current Condition Evaluation Date 05/04/18 Treatment Diagnosis s/p L TKA Onset Date 05/04/18 Weight Bearing Status Weight Bearing Status Weight Bear as Tolerated M3 PT-IP Subjective Start: 05/04/18 17:29 Freq: NEEDED Status: Active Protocol: Document 05/05/18 08:10 EA (Rec: 05/05/18 08:14 EA [id number]) Subjective Physical Therapy Visit Type Type Treatment Note Visit Start Time 07:35 Visit Stop Time 08:10 Total Visit Minutes 35 Physical Therapy Visit Comments Patient Comments Patient would like to go home today; states it ok to practice stairs now. Patient Goals Be able to mobilize with no assistance Therapy Pain Assessment Pain When Pain Assessed During Mobility Pain Present Pain Present Pain Reported Location Left Knee Intensity 4 Description Throbbing Pain Behaviors Wincing Pain Management Techniques Timing of Activity with Medications M4 PT-IP Mobility and Gait Start: 05/04/18 17:29 Freq: NEEDED Status: Active Protocol: Document 05/05/18 08:10 EA (Rec: 05/05/18 08:14 EA [id number]) PT-Transfer Assessment Sit to and From Stand Sit to and from Stand Standby Assistance Equipment Transfer Assistive Device Front Wheeled Walker M5 PT-IP Objective Assessments Start: 05/04/18 17:29 Freq: NEEDED Status: Active Protocol: Document 05/05/18 09:01 EA (Rec: 05/05/18 09:14 EA [id number]) Orientation Orientation/Cognition Level of Alertness Alert Orientation Date Year Day of Week Safety Awareness Understands Safety Issues Memory Description No Deficits Noted Gross Range of Motion Upper Extremity ROM Assessment Within Functional Limits Lower Extremity ROM Assessment Left Impaired Strength Upper Extremity Strength Assessment Within Functional Limits Lower Extremity Strength Assessment Left Impaired Comments Strength Comments Left Knee extensors, hip flexors, hip ABD with at least 3+/5 Coordination Assessment Gross Coordination Gross Coordination WNL Assessment Finger to Nose Test Normal Performance Sensation Assessment Sensation Gross Sensation Right LE Impaired Left LE Impaired Sensation Description Tingling Comments Sensation Comments Pt reports tingling sensation to both feet M6 PT-IP Treatment Start: 05/04/18 17:29 Freq: NEEDED Status: Active Protocol: Document 05/05/18 09:01 EA (Rec: 05/05/18 09:14 EA [id number]) Physical Therapy Treatment Exercises Exercises Quad Sets Heel Slides Straight Leg Raises Short Arc Quads Passive Knee Extension Hang Seated Knee Flexion/Extension Education Education Provided Precautions Weight Bearing Status Post-Op Packet Safety M7 PT-IP Assessment and Plan Start: 05/04/18 17:29 Freq: NEEDED Status: Active Protocol: Document 05/05/18 09:01 EA (Rec: 05/05/18 09:14 EA [id number]) PT Summary Assessment and Plan Potential Rehabilitation Potential Good Status of Condition at Evaluation Stable Summary Impairments Pain ROM Strength Balance Bed Mobility Transfers Gait Activity Tolerance Progress Towards Goals Progressing Toward Goals Assessment Summary Pt able to ambulate 50 ft and straight to navigate 1 step with the use of two rails with CGA. Noted foward trunk leaned with severe left foot ext rotation, however able to correct minimally with cues. No noted any signs of instability and dizziness throughout the session. Patient is progressing towards goals of 2 days left. Continue with current plan and to practice 2 steps with single rail support and straight cane to other hand next session. Goals Bed Mobility Goal Independent Transfer Goal Standby Assistance Gait Goal Standby Assistance Gait Distance 150 ft Other Goals up/down 2 steps using R rail ascending SBA Days to Meet Goals 2 Frequency of Treatment Frequency Of Treatment Twice a Day Treatment Plan Physical Therapy Treatment Plan Bed Mobility Training Transfer Training Gait Training Therapeutic Exercise Balance Retraining Post Op Education Discharge Planning Other Recommendations and Next Treatment ambulation, stair climbing Focus with single hand to rail and other hand is straight cane Recommendations To Nursing Amount of Assist Needed 1 Person Assist Discharge Recommendations PT Discharge Recommendations Home with Assistance Outpatient PT
[2018-05-05] MEDS: METFORMIN HCL 500 MG TABLET 1000 MG PO ×2 (10:44→18:05)
[2018-05-05 14:00] VITALS: BP 109/70; PULSE 75; RESP 16; TEMP 36.4; O2SAT 98
--- NOTE | 2018-05-05 15:06 | PT.IPTN ---
Current Diagnoses Unilateral primary osteoarthritis, left knee (05/04/18) Surgery Performed Operation Date: 05/04/18 07:45 Actual Procedures p Total Knee Arthroplasty(Left) - Hipolito Albarran MD Physical Therapy Treatment Note M2 PT-IP Current Condition Start: 05/04/18 17:29 Freq: NEEDED Status: Active Protocol: Document 05/04/18 16:12 AB (Rec: 05/04/18 17:42 AB [id number]) Physical Therapy Current Condition Current Condition Evaluation Date 05/04/18 Treatment Diagnosis s/p L TKA Onset Date 05/04/18 Weight Bearing Status Weight Bearing Status Weight Bear as Tolerated M3 PT-IP Subjective Start: 05/04/18 17:29 Freq: NEEDED Status: Active Protocol: Document 05/05/18 12:30 CLB (Rec: 05/05/18 15:06 CLB [email or web address]) Subjective Physical Therapy Visit Type Type Treatment Note Visit Start Time 12:30 Visit Stop Time 13:10 Total Visit Minutes 40 Number of ROUTE DELIVERY SUPERVISOR Visits 1 Physical Therapy Visit Comments Patient Comments Pt wanting to go home but then began to feel increased pain and stated she would like to stay until tomorrow. RN aware of change. Therapy Pain Assessment Pain When Pain Assessed During Mobility Pain Present Pain Present Pain Reported Location Left Knee Intensity 8 Scale Used Numeric (1 - 10) Pain Behaviors Guarding Holding Area Wincing Pain Management Techniques Apply Cold Timing of Activity with Medications M4 PT-IP Mobility and Gait Start: 05/04/18 17:29 Freq: NEEDED Status: Active Protocol: Document 05/05/18 12:30 CLB (Rec: 05/05/18 15:06 CLB [email or web address]) PT-Bed Mobility Assessment Sit to Supine Sit to Supine Contact Guard Assistance 1 Person Assistance Scooting Scooting Up and Down in Bed Standby Assistance PT-Transfer Assessment Sit to and From Stand Sit to and from Stand Minimal Assistance 1 Person Assistance Use of Upper Extremities Equipment Transfer Assistive Device Gait Belt Front Wheeled Walker Orthotic/Prosthetic Devices or Brace: No Transfers Transfer Destination Bed Toilet Transfer Technique after ambulation Transfer Ability Level of Assist Minimal Assistance 1 Person Assistance Use of Upper Extremities Comments Mobility Comments Pt with increased pain this afternoon needed Min A to full stand from chair but continues to do well with bed mobility. Gait Assessment Gait Gait Assistance Required: Contact Guard Assist 1 Person Assist Distance (Feet) 60 Able to Maintain Weight Bearing Status Yes During Gait Assistive Devices Assistive Device Gait Belt Front Wheeled Walker Orthotic/Prosthetic Devices or Brace: No Gait Deviations General Gait Pattern Antalgic Decreased Stride Length Decreased Feet Clearance Factors Limiting Gait Function Factors Limiting Gait Function Decreased Strength Pain Poor Balance Comments Gait Comments Pt will higher pain with ambulation needing cues for heel/toe and bending knee and lifting foot rather than hiking hip to elevate foot off floor. Stair Climbing Assessment Comments Stair Climbing Comments Pt stating with increased pain she didn't want to trial stairs. PT-Balance Assessment Sitting Balance and Reactions Static Sitting Balance Ability Good Dynamic Sitting Balance Ability Good Standing Balance and Reactions Static Standing Balance Ability Fair Dynamic Standing Balance Ability Fair Device Used FWW M5 PT-IP Objective Assessments Start: 05/04/18 17:29 Freq: NEEDED Status: Active Protocol: Document 05/05/18 09:01 EA (Rec: 05/05/18 09:14 EA [id number]) Orientation Orientation/Cognition Level of Alertness Alert Orientation Date Year Day of Week Safety Awareness Understands Safety Issues Memory Description No Deficits Noted Gross Range of Motion Upper Extremity ROM Assessment Within Functional Limits Lower Extremity ROM Assessment Left Impaired Strength Upper Extremity Strength Assessment Within Functional Limits Lower Extremity Strength Assessment Left Impaired Comments Strength Comments Left Knee extensors, hip flexors, hip ABD with at least 3+/5 Coordination Assessment Gross Coordination Gross Coordination WNL Assessment Finger to Nose Test Normal Performance Sensation Assessment Sensation Gross Sensation Right LE Impaired Left LE Impaired Sensation Description Tingling Comments Sensation Comments Pt reports tingling sensation to both feet M6 PT-IP Treatment Start: 05/04/18 17:29 Freq: NEEDED Status: Active Protocol: Document 05/05/18 12:30 CLB (Rec: 05/05/18 15:06 CLB [email or web address]) Physical Therapy Treatment Exercises Exercises Quad Sets Heel Slides Straight Leg Raises Short Arc Quads Passive Knee Extension Hang Seated Knee Flexion/Extension Education Education Provided Precautions Weight Bearing Status Post-Op Packet Safety Other Treatments Other Treatment Performed Discussed getting in and out of vehicle with daughter with demonstration. M7 PT-IP Assessment and Plan Start: 05/04/18 17:29 Freq: NEEDED Status: Active Protocol: Document 05/05/18 12:30 CLB (Rec: 05/05/18 15:06 CLB [email or web address]) PT Summary Assessment and Plan Potential Rehabilitation Potential Good Status of Condition at Evaluation Stable Summary Impairments Pain ROM Strength Balance Bed Mobility Transfers Gait Activity Tolerance Progress Towards Goals Progressing Toward Goals Assessment Summary Pt having increase in pain needed increased assist to full stand and CGA for gait with cues for heel/toe walking . Pt respectfully refused continued stair training at this time due to increase in pain. Goals Bed Mobility Goal Independent Transfer Goal Standby Assistance Gait Goal Standby Assistance Gait Distance 150 ft Other Goals up/down 2 steps using R rail ascending SBA Days to Meet Goals 2 Frequency of Treatment Frequency Of Treatment Twice a Day Treatment Plan Physical Therapy Treatment Plan Bed Mobility Training Transfer Training Gait Training Therapeutic Exercise Balance Retraining Post Op Education Discharge Planning Other Recommendations and Next Treatment ambulation, stair training (pt [facility] has two stairs at back door with no rails) Daughter has been assisting her with stairs with walker. Recommendations To Nursing Amount of Assist Needed 1 Person Assist Discharge Recommendations PT Discharge Recommendations Home with Assistance Outpatient PT
[2018-05-05 16:13] VITALS: BP 135/85; PULSE 78; RESP 18; TEMP 36.8; O2SAT 97
[2018-05-05] MEDS: NEBIVOLOL 10 MG TABLET PO (20:30)
[2018-05-05 20:41] VITALS: BP 136/82; PULSE 85; RESP 18; TEMP 37.1; O2SAT 97
[2018-05-06 00:24] VITALS: BP 124/58; PULSE 85; RESP 18; TEMP 37.1; O2SAT 95
[2018-05-06] MEDS: OXYCODONE IR 5 MG TABLET PO ×3 (00:33→09:28)
[2018-05-06 04:26] VITALS: BP 124/61; PULSE 76; RESP 16; TEMP 37.1; O2SAT 98
[2018-05-06] MEDS: LEVOTHYROXINE 100 MCG TABLET PO (06:26)
[2018-05-06 07:45] VITALS: BP 135/65; PULSE 79; RESP 16; TEMP 36.9; O2SAT 97
[2018-05-06] MEDS: hydroCHLOROthiazide 25 MG TABLET PO (08:15)
[2018-05-06] MEDS: PANTOPRAZOLE 20 MG TABLET PO (08:15)
[2018-05-06] MEDS: ACETAMINOPHEN 325 MG TABLET 975 MG PO (08:16)
[2018-05-06] MEDS: METFORMIN HCL 500 MG TABLET PO (08:16)
[2018-05-06] MEDS: ALLOPURINOL 100 MG TABLET PO (08:17)
[2018-05-06] MEDS: GABAPENTIN 300 MG CAPSULE 900 MG PO (08:17)
[2018-05-06] MEDS: ASPIRIN EC 81 MG TABLET PO (08:17)
[2018-05-06] MEDS: CHOLESTYRAMINE/ASPARTAME 4 GM PACK PO (08:18)
--- NOTE | 2018-05-06 09:30 | PT.IPTN ---
Current Diagnoses Unilateral primary osteoarthritis, left knee (05/05/18) Surgery Performed Operation Date: 05/04/18 07:45 Actual Procedures p Total Knee Arthroplasty(Left) - Hipolito Albarran MD Physical Therapy Treatment Note M2 PT-IP Current Condition Start: 05/04/18 17:29 Freq: NEEDED Status: Discharge Protocol: Document 05/04/18 16:12 AB (Rec: 05/04/18 17:42 AB [id number]) Physical Therapy Current Condition Current Condition Evaluation Date 05/04/18 Treatment Diagnosis s/p L TKA Onset Date 05/04/18 Weight Bearing Status Weight Bearing Status Weight Bear as Tolerated M3 PT-IP Subjective Start: 05/04/18 17:29 Freq: NEEDED Status: Discharge Protocol: Document 05/06/18 09:30 GGD (Rec: 05/06/18 13:01 GGD [id number]) Subjective Physical Therapy Visit Type Type Treatment Note Visit Start Time 08:50 Visit Stop Time 09:30 Total Visit Minutes 40 Number of TELEVISION PRESENTER Visits 2 Physical Therapy Visit Comments Patient Comments Pt states she would like to do stairs. Therapy Pain Assessment Pain When Pain Assessed During Mobility Pain Present Pain Present Pain Reported Location Left Knee Intensity 3 Scale Used Numeric (1 - 10) Pain Management Techniques Timing of Activity with Medications M4 PT-IP Mobility and Gait Start: 05/04/18 17:29 Freq: NEEDED Status: Discharge Protocol: Document 05/06/18 09:30 GGD (Rec: 05/06/18 13:01 GGD [id number]) PT-Bed Mobility Assessment Sit to Supine Sit to Supine Contact Guard Assistance 1 Person Assistance Scooting Scooting to Edge of Bed Standby Assistance PT-Transfer Assessment Sit to and From Stand Sit to and from Stand Contact Guard Assistance 1 Person Assistance Use of Upper Extremities Equipment Transfer Assistive Device Gait Belt Front Wheeled Walker Orthotic/Prosthetic Devices or Brace: No Transfers Transfer Destination Bed Gait Assessment Gait Gait Assistance Required: Contact Guard Assist 1 Person Assist Distance (Feet) 100 Able to Maintain Weight Bearing Status Yes During Gait Assistive Devices Assistive Device Gait Belt Front Wheeled Walker Orthotic/Prosthetic Devices or Brace: No Gait Deviations General Gait Pattern Antalgic Decreased Stride Length Decreased Feet Clearance Factors Limiting Gait Function Factors Limiting Gait Function Decreased Strength Pain Poor Balance Stair Climbing Assessment Evaluation Level of Assist On Stairs Contact Guard Assistance Minimal Assistance Devices Stair Climbing Assistive Devices Front Wheel Walker Technique/Endurance Stair Climbing Direction Ascend and Descend Stair Climbing Technique Step to Step Number of Steps Climbed 3 Query Text: Stair Climbing Set # Repetitions (reps) 1 M5 PT-IP Objective Assessments Start: 05/04/18 17:29 Freq: NEEDED Status: Discharge Protocol: Document 05/05/18 09:01 EA (Rec: 05/05/18 09:14 EA [id number]) Orientation Orientation/Cognition Level of Alertness Alert Orientation Date Year Day of Week Safety Awareness Understands Safety Issues Memory Description No Deficits Noted Gross Range of Motion Upper Extremity ROM Assessment Within Functional Limits Lower Extremity ROM Assessment Left Impaired Strength Upper Extremity Strength Assessment Within Functional Limits Lower Extremity Strength Assessment Left Impaired Comments Strength Comments Left Knee extensors, hip flexors, hip ABD with at least 3+/5 Coordination Assessment Gross Coordination Gross Coordination WNL Assessment Finger to Nose Test Normal Performance Sensation Assessment Sensation Gross Sensation Right LE Impaired Left LE Impaired Sensation Description Tingling Comments Sensation Comments Pt reports tingling sensation to both feet M6 PT-IP Treatment Start: 05/04/18 17:29 Freq: NEEDED Status: Discharge Protocol: Document 05/06/18 09:30 GGD (Rec: 05/06/18 13:01 GGD [id number]) Physical Therapy Treatment Exercises Exercises Ankle Pumps Gluteal Sets Quad Sets Heel Slides Seated Knee Flexion/Extension Education Education Provided Safety M7 PT-IP Assessment and Plan Start: 05/04/18 17:29 Freq: NEEDED Status: Discharge Protocol: Document 05/06/18 09:30 GGD (Rec: 05/06/18 13:01 GGD [id number]) PT Summary Assessment and Plan Summary Assessment Summary Pt improved with gait distance . She was able to do stair mobility with cues and stabiliztion of FWW. Frequency of Treatment Frequency Of Treatment Twice a Day Treatment Plan Physical Therapy Treatment Plan Bed Mobility Training Transfer Training Gait Training Therapeutic Exercise Balance Retraining Post Op Education Discharge Planning Other Recommendations and Next Treatment ambulation, stair training (pt [facility] has two stairs at back door with no rails) Daughter has been assisting her with stairs with walker. Recommendations To Nursing Amount of Assist Needed 1 Person Assist Discharge Recommendations PT Discharge Recommendations Home with Assistance Outpatient PT
--- NOTE | 2018-05-06 12:04 | PC.NURSE ---
Day Shift- Pt A&OX4, able to make her needs known using call light, sitting up in chair for breakfast. Rates 1-2/10 aching to left knee incision area with rest, 5-7/10 throbbing with movement. Pain meds discussed. Oxycodone 5mg prn given at 0930 for 5/10 pain. Upon reassessment, pt asleep. Ice to incision area also this AM. CMS+, PPP, edema noted around left knee dressing. Pt's daughter arrived to drive pt home, discharge instructions given by Administrative Manager JASON Torres. Pt stated she has her prescriptions already filled at home and has op PT in [facility] as pt lives in [place]. Pt states feeling better compared to yesterday's afternoon PT session. PT assessed this AM after breakfast and okay to discharge home. Pt left via wheelchair with all belongings and daughter at her side. Left unit in no distress with WAREHOUSE ADMINISTRATIVE ASSISTANT.
--- NOTE | 2018-05-06 12:16 | CM.DPC ---
DCP: continued: pt did continue on for care. Was seen again by TYLER Seals who reports in morning rounds that pt was now cleared by PT for home with daughter's support as per her plan.
== END 2018-05-06 11:30 | disposition home or self-care (01) ==
LOC: AC 05-06 11:45 → OR 05-06 12:51 → AC 05-06 12:53
PROVIDERS: Admitting Provider Orthopaedic Surgery; Family Provider Physician Assistant; PCP Physician Assistant; Visit Provider Orthopaedic Surgery
PROC: 0SRD0JZ Replacement of Left Knee Joint with Synthetic Substitute, Open Approach (ICD-10-PCS; CPT 27447; principal; 2018-05-04 07:45)
DX: M17.12 Unilateral primary osteoarthritis, left knee (principal); I10 Essential (primary) hypertension; E66.9 Obesity, unspecified; R00.0 Tachycardia, unspecified; G47.33 Obstructive sleep apnea (adult) (pediatric); E11.40 Type 2 diabetes mellitus with diabetic neuropathy, unspecified; E03.9 Hypothyroidism, unspecified; K21.9 Gastro-esophageal reflux disease without esophagitis
CPT/HCPCS: 27447; 36415; 73560; 82962; 85014; 85018; 97110; 97116; 97161; 97530; C1776; G0378; C9290; J0690; J2250; J2274; J2405; J2704; J3010

== ENCOUNTER → 2019-08-29 16:00 | Outpatient (ROUT) | payer MEDICARE, SELFPAY ==
[2018-05-04 13:13] VITALS: BMI 33.3
[2019-08-29 16:22] LABS: Basophils Absolute Auto 0 /uL (0-100); Basophils Percent Auto 0.8 % (0-2); Eosinophils Absolute Auto 100 /uL (0-450); Eosinophils Percent Auto 2.2 % (2-4); Hematocrit 36.1 % (36-46); Hemoglobin 11.9 g/dL (12.0-16.0); Lymphocytes Absolute Auto 800 /uL (1100-4500); Lymphocytes Percent Auto 15.3 % (25-40); Mean Corpuscular Hemoglobin 27.4 PG (26-34); Mean Corpuscular Volume 83.1 fL (80-100); Monocytes Absolute Auto 500 /uL (0-900); Monocytes Percent Auto 9.2 % (3-14); Neutrophils Absolute Auto 3900 /uL (1500-7000); Neutrophils Percent Auto 72.5 % (50-75); Red Blood Cell Count 4.35 X10^6/uL (4.0-5.2); Red Cell Distribution Width 14.9 % (11.6-14.8); White Blood Cell Count 5.3 X10^3/uL (4.5-11.0)
[2019-08-29 16:51] LABS: Add Manual Diff / Slide Review SLIDE REVIEW; Platelet Count 120 X10^3/uL (150-400); RBC Morphology Normal Morphology
[2019-08-29 16:52] LABS: Platelet Morphology Comment NOTE
[2019-08-29 17:02] LABS: Alanine Aminotransferase 19 IU/L (<35); Albumin 3.8 g/dL (3.5-5.0); Alkaline Phosphatase 125 U/L (38-126); Aspartate Aminotransferase 51 IU/L (14-36); BUN Creatinine Ratio 15.6 (6-22); Bilirubin Total 0.5 mg/dL (0.2-1.3); Blood Urea Nitrogen 14 mg/dL (7-17); Calcium 9.6 mg/dL (8.4-10.2); Carbon Dioxide 25 mmol/L (22-32); Chloride 100 mmol/L (98-107); Cholesterol 137 mg/dL (140-199); Estimated Glomerular Filt Rate > 60.0 mL/min (>60); Globulin 3.8 g/dL (1.7-4.1); Glucose 215 mg/dL (80-110); HDL Cholesterol 48 mg/dL (40-60); HEMOLYSIS < 15 (0-50); LDL Cholesterol Calculated 67 mg/dL (<100); Potassium 4.2 mmol/L (3.4-5.1); Sodium 138 mmol/L (137-145); Total Protein 7.6 g/dL (6.3-8.2); Triglycerides 110 mg/dL (35-150)
[2019-08-29 17:08] LABS: Hemoglobin A1C% w Est Avg Glu 6.2 % (4.0-6.0)
== END ==
PROVIDERS: Family Provider Physician Assistant; PCP Physician Assistant; Visit Provider Physician Assistant
DX: E11.21 Type 2 diabetes mellitus with diabetic nephropathy (principal); E03.9 Hypothyroidism, unspecified; E78.5 Hyperlipidemia, unspecified
CPT/HCPCS: 80053; 80061; 83036; 85025

== ENCOUNTER → 2020-03-15 14:28 | Outpatient (CLI) | payer MEDICARE, SELFPAY ==
[2018-05-04 13:13] VITALS: BMI 33.3
--- NOTE | 2020-03-15 14:30 | DI.ECHO.S_ITS ---
[place] [facility]---------+ [facility] +---------+ : : [id number] : : : : [id number] : : : : Phone: [phone]+ Echocardiogram Report + + :Name: LUCIANA HOSKINS Study Date: 03/15/2020 Height: 71 in : :[facility] Weight: 267 lb : : Gender: Female BSA: 2.4 m2 : :: 1940 Age: 79 yrs BP: 172/86 mmHg: :Reason For Study: Dyspnea on exertion : : Performed By: Kylie Lainez : :Referring: FREDERICK GUTIERREZ : + + Interpretation Summary The study quality was technically difficult. The left ventricle is normal in size. The ejection fraction is estimated to be 60-65%. MV E/A: 0.66 Med Peak E' Jes[place]: 3.4 cm/sec E/E' med: 31.6 The right ventricle is borderline dilated. The right ventricular systolic function is normal. There is moderate to severe mitral annular calcification. Mitral leaflets appears to be have decreased excursion however no significant mitral stenosis seen. There appears to be mild mitral stenosis. The aortic valve is not well visualized. A bicuspid aortic valve cannot be excluded. There is mild to moderate aortic regurgitation. There is mildly reduced leaflet mobility. There is no hemodynamically significant valvular aortic stenosis. Procedure: A two-dimensional transthoracic echocardiogram with color flow and Doppler was performed. Most of the acoustic windows were suboptimal, but the best imaging was obtained from the apical window. The study quality was technically difficult. A contrast injection of Definity was performed to improve assessment of LV function. There is no prior echocardiogram noted for this patient. The patient was in normal sinus rhythm during the exam. Left Ventricle: The left ventricle is normal in size. Left ventricular wall thickness is borderline increased. There is no thrombus. The ejection fraction is estimated to be 60-65%. There are no focal wall motion abnormalities. MV E/A: 0.66 Med Peak E' Jes[place]: 3.4 cm/sec E/E' med: 31.6. Right Ventricle: The right ventricle is borderline dilated. The right ventricular systolic function is normal. Atria: The left atrium is moderately dilated. Right atrial size is normal. The interatrial septum is intact with no evidence for an atrial septal defect. Mitral Valve: There is moderate to severe mitral annular calcification. The mitral valve chordae are thickened and/or calcified. The mitral valve is not well visualized. Mitral leaflets appears to be have decreased excursion however no significant mitral stenosis seen. There appears to be mild mitral stenosis. There is trace mitral regurgitation. Aortic Valve: The aortic valve is moderately calcified. The aortic valve is not well visualized. A bicuspid aortic valve cannot be excluded. There is mildly reduced leaflet mobility. There is no hemodynamically significant valvular aortic stenosis. There is mild to moderate aortic regurgitation. Tricuspid Valve: The tricuspid valve is not well visualized, but is grossly normal. Right ventricular systolic pressure is estimated to be 23 mmHg plus the clinically estimated CVP which cannot be estimated on this exam. There is trace tricuspid regurgitation. Pulmonic Valve: The pulmonic valve is not well visualized. Great Vessels: The aortic root is not well visualized. The dimensions of the ascending aorta are normal. The aortic arch could not be visualized. The inferior vena cava was not visualized. Pericardium/ Pleura There is no pericardial effusion. There is an anterior echo-free space consistent with a fat pad. MMode/2D Measurements & Calculations LVIDd: 4.6 cm asc Aorta Diam: 3.3 cm LVIDs: 3.3 cm FS: 28.5 % IVSd: 1.1 cm LVPWd: 1.2 cm LV [place]o. diameter/BSA (cm/m^2): 1.9 LV sys. diameter/BSA (cm/m^2): 1.4 LA A2 area: 27.2 cm2 RA long axis: 5.2 cm LA A4 area: 23.6 cm2 RA area: 17.3 cm2 LA length (vol): 5.5 cm RA vol: 49.0 ml LA vol: 99.3 ml RA : 20.5 ml/m2 LA vol index: 41.7 ml/m2 RVD1 (basal): 4.3 cm RVD2 (mid): 3.6 cm TAPSE: 3.3 cm Doppler Measurements & Calculations Ao V2 max: 175.4 cm/sec LVOT Max Jessee: 100.3 cm/sec Ao V2 mean: 124.1 cm/sec LV V1 max P.0 mmHg Ao max P.3 mmHg LV V1 VTI: 21.8 cm Ao mean P.8 mmHg sev ratio: 0.57 Ao V2 VTI: 38.3 cm AI P1/2t: 460.8 msec AI dec slope: 306.1 cm/sec2 MV E max jessee: 107.4 cm/sec TR max jessee: 239.4 cm/sec MV A max jessee: 162.0 cm/sec TR max P.9 mmHg MV E/A: 0.66 PA V2 max: 98.0 cm/sec Med Peak E' Jes[place]: 3.4 cm/sec PA V2 mean: 76.5 cm/sec E/E' med: 31.6 PA mean P.5 mmHg Lat Peak E' Jes[place]: 3.9 cm/sec PA Accel Time: 0.06 sec E/E' lat: 27.5 E/e' average: 29.5 MV dec time: 0.26 sec MV P1/2t: 78.8 msec MV P1/2t max j[place]: 107.8 cm/sec MVA(P1/2t): 2.8 cm2 Reading Physician:10:32 AM
--- NOTE | 2020-03-15 14:30 | DI.RAD.S_ITS ---
PROCEDURE: XR CHEST 2V INDICATIONS: DYSPNEA ON EXERTION TECHNIQUE: 2 views of the chest were acquired. COMPARISON: [facility], , CHEST 1 VIEW, 08/03/2017, 18:50. FINDINGS: Surgical changes and devices: None. Lungs and pleura: Lungs are clear. No pleural effusions or pneumothorax. Mediastinum: Mediastinal contours are normal. Heart size is normal. Bones and chest wall: No suspicious bony abnormalities. Soft tissues appear unremarkable. IMPRESSION: No acute cardiopulmonary disease. Dictated by: Francisco Guadarrama [facility] Interpreted: Glenn Zeng MD on 03/15/2020 at 16:35 Approved by: Glenn Zeng M.D. on 03/15/2020 at 17:12
[2020-03-15 17:12] LABS: Add Manual Diff / Slide Review NO; Basophils Absolute Auto 100 /uL (0-100); Eosinophils Absolute Auto 200 /uL (0-450); Eosinophils Percent Auto 3.4 % (2-4); Hematocrit 32.6 % (36-46); Hemoglobin 10.6 g/dL (12.0-16.0); Lymphocytes Absolute Auto 900 /uL (1100-4500); Lymphocytes Percent Auto 16.9 % (25-40); Mean Corpuscular HGB Conc 32.4 % (30-36); Mean Corpuscular Hemoglobin 24.9 PG (26-34); Mean Corpuscular Volume 76.6 fL (80-100); Monocytes Absolute Auto 600 /uL (0-900); Monocytes Percent Auto 10.4 % (3-14); Neutrophils Absolute Auto 3800 /uL (1500-7000); Neutrophils Percent Auto 68.3 % (50-75); Platelet Count 139 X10^3/uL (150-400); Red Blood Cell Count 4.25 X10^6/uL (4.0-5.2); Red Cell Distribution Width 16.1 % (11.6-14.8); White Blood Cell Count 5.5 X10^3/uL (4.5-11.0)
[2020-03-15 17:24] LABS: Hemoglobin A1C% w Est Avg Glu 6.1 % (4.0-6.0)
[2020-03-15 17:27] LABS: Alanine Aminotransferase 17 IU/L (<35); Albumin 4.2 g/dL (3.5-5.0); Albumin Globulin Ratio 1.1 (1.0-2.8); Alkaline Phosphatase 129 U/L (38-126); Aspartate Aminotransferase 41 IU/L (14-36); BUN Creatinine Ratio 20.5 (6-22); Bilirubin Total 0.6 mg/dL (0.2-1.3); Blood Urea Nitrogen 18 mg/dL (7-17); Calcium 10.2 mg/dL (8.4-10.2); Carbon Dioxide 26 mmol/L (22-32); Chloride 98 mmol/L (98-107); Estimated Glomerular Filt Rate > 60.0 mL/min (>60); Globulin 3.7 g/dL (1.7-4.1); Glucose 91 mg/dL (80-110); HEMOLYSIS < 15 (0-50); Potassium 4.1 mmol/L (3.4-5.1); Sodium 135 mmol/L (137-145); Total Protein 7.9 g/dL (6.3-8.2); Uric Acid 6.8 mg/dL (2.5-6.2)
[2020-03-15 17:33] LABS: NT-proBNP (BNP-Adult 18+) 223 pg/mL (<450)
[2020-03-15 17:56] LABS: TSH w/ Reflex to FT4 1.73 uIU/mL (0.47-4.68)
[2020-03-18 14:32] LABS: HEMOLYSIS < 15 (0-50); Iron 43 ug/dL (37-170)
[2020-03-18 14:43] LABS: Percent Iron Saturation 8 % (15-50); Total Iron Binding Capacity 520 ug/dL (265-497); Transferrin 414 mg/dL (206-381)
[2020-03-18 15:57] LABS: Ferritin 11 ng/mL (11-264)
[2020-03-18 16:10] LABS: Vitamin B12 201 pg/mL (239-931)
== END ==
PROVIDERS: Family Provider Physician Assistant; PCP Physician Assistant; Referring Provider Physician Assistant; Visit Provider Physician Assistant
DX: I35.1 Nonrheumatic aortic (valve) insufficiency (principal); R06.09 Other forms of dyspnea; R06.02 Shortness of breath; E11.9 Type 2 diabetes mellitus without complications; I10 Essential (primary) hypertension; M10.9 Gout, unspecified; E03.9 Hypothyroidism, unspecified
CPT/HCPCS: 36415; 71046; 80053; 82607; 82728; 83036; 83540; 83550; 83880; 84443; 84550; 85025; 93306; Q9957

== ENCOUNTER → 2020-04-18 11:50 | Outpatient (CLI) | payer MEDICARE, SELFPAY ==
[2018-05-04 13:13] VITALS: BMI 33.3
--- NOTE | 2020-04-18 12:11 | DI.MG.S_ITS ---
Patient Name: LUCIANA HOSKINS date: 1940 Sex: F Attending Physician: Danae Indications: Date: 04/18/2020 12:04 At the request of: FREDERICK GUTIERREZ Procedure: MM screening mammo BI BILATERAL DIGITAL SCREENING MAMMOGRAM 3D/2D WITH CAD: 04/18/2020 CLINICAL: Routine screening. Comparison is made to exams dated: 05/31/2009 mammogram, 05/15/2008 mammogram, 12/08/2006 mammogram, 09/22/2004 mammogram, and 11/03/2005 mammogram - [facility]. The tissue of both breasts is predominantly fatty. Current study was also evaluated with a Computer Aided Detection (CAD) system. No significant masses, calcifications, or other findings are seen in either breast. There has been no significant interval change. IMPRESSION: NEGATIVE There is no mammographic evidence of malignancy. A 1 year screening mammogram is recommended. This exam was interpreted at Station ID: [id number]. NOTE: For mammograms, a report in lay terms will be sent to the patient. Approximately 15% of breast malignancies will not be visualized mammographically. In the management of a palpable breast mass, a negative mammogram must not discourage biopsy of a clinically suspicious lesion. Electronically Signed By: Roberto gallardo/caterina:04/18/2020 13:31:56 letter sent: Normal Exam ACR BI-RADS Category 1: Negative [id number]
== END ==
PROVIDERS: Family Provider Physician Assistant; PCP Physician Assistant; Referring Provider Physician Assistant; Visit Provider Physician Assistant
DX: Z12.31 Encounter for screening mammogram for malignant neoplasm of breast (principal)
CPT/HCPCS: 77063; 77067

== ENCOUNTER → 2020-05-09 11:11 | Outpatient (CLI) | payer MEDICARE, SELFPAY ==
[2018-05-04 13:13] VITALS: BMI 33.3
[2020-05-09 12:37] LABS: Add Manual Diff / Slide Review NO; Basophils Absolute Auto 0 /uL (0-100); Basophils Percent Auto 0.8 % (0-2); Eosinophils Absolute Auto 100 /uL (0-450); Eosinophils Percent Auto 2.2 % (2-4); Hematocrit 30.9 % (36-46); Hemoglobin 9.8 g/dL (12.0-16.0); Lymphocytes Absolute Auto 700 /uL (1100-4500); Lymphocytes Percent Auto 14.8 % (25-40); Mean Corpuscular HGB Conc 31.6 % (30-36); Mean Corpuscular Hemoglobin 25.5 PG (26-34); Mean Corpuscular Volume 80.5 fL (80-100); Monocytes Absolute Auto 400 /uL (0-900); Monocytes Percent Auto 9.2 % (3-14); Neutrophils Absolute Auto 3500 /uL (1500-7000); Platelet Count 125 X10^3/uL (150-400); Red Blood Cell Count 3.84 X10^6/uL (4.0-5.2); Red Cell Distribution Width 21.9 % (11.6-14.8); White Blood Cell Count 4.8 X10^3/uL (4.5-11.0)
[2020-05-09 13:01] LABS: Anisocytosis 2+; Hypochromasia 1+
[2020-05-09 13:22] LABS: HEMOLYSIS < 15 (0-50); Iron 152 ug/dL (37-170)
[2020-05-09 13:25] LABS: BUN Creatinine Ratio 13.1 (6-22); Blood Urea Nitrogen 11 mg/dL (7-17); Calcium 9.7 mg/dL (8.4-10.2); Carbon Dioxide 27 mmol/L (22-32); Chloride 97 mmol/L (98-107); Estimated Glomerular Filt Rate > 60.0 mL/min (>60); Glucose 126 mg/dL (80-110); HEMOLYSIS < 15 (0-50); Potassium 5.2 mmol/L (3.4-5.1); Sodium 134 mmol/L (137-145)
[2020-05-09 13:36] LABS: Percent Iron Saturation 33 % (15-50); Total Iron Binding Capacity 458 ug/dL (265-497); Transferrin 357 mg/dL (206-381)
[2020-05-09 13:58] LABS: Ferritin 31 ng/mL (11-264)
[2020-05-09 14:28] LABS: Folate > 20.0 ng/mL (2.76-20.0); Vitamin B12 240 pg/mL (239-931)
== END ==
PROVIDERS: Family Provider Physician Assistant; PCP Physician Assistant; Referring Provider Physician Assistant; Visit Provider Physician Assistant
DX: D64.9 Anemia, unspecified (principal)
CPT/HCPCS: 36415; 80048; 82607; 82728; 82746; 83540; 83550; 85025

== ENCOUNTER → 2020-05-30 13:04 | Outpatient (ROUT) | payer MEDICARE, SELFPAY ==
[2018-05-04 13:13] VITALS: BMI 33.3
[2020-05-30 13:11] LABS: Add Manual Diff / Slide Review NO; Basophils Absolute Auto 0 /uL (0-100); Basophils Percent Auto 0.8 % (0-2); Eosinophils Absolute Auto 100 /uL (0-450); Eosinophils Percent Auto 2.5 % (2-4); Hematocrit 34.6 % (36-46); Hemoglobin 11.1 g/dL (12.0-16.0); Lymphocytes Absolute Auto 800 /uL (1100-4500); Mean Corpuscular Hemoglobin 26.6 PG (26-34); Mean Corpuscular Volume 83.1 fL (80-100); Monocytes Absolute Auto 500 /uL (0-900); Monocytes Percent Auto 10.1 % (3-14); Neutrophils Absolute Auto 3600 /uL (1500-7000); Neutrophils Percent Auto 71.6 % (50-75); Platelet Count 113 X10^3/uL (150-400); Red Blood Cell Count 4.16 X10^6/uL (4.0-5.2); Red Cell Distribution Width 22.9 % (11.6-14.8); White Blood Cell Count 5.1 X10^3/uL (4.5-11.0)
[2020-05-30 13:24] LABS: Blood Urea Nitrogen 13 mg/dL (7-17); Calcium 9.3 mg/dL (8.4-10.2); Carbon Dioxide 25 mmol/L (22-32); Chloride 93 mmol/L (98-107); Estimated Glomerular Filt Rate > 60.0 mL/min (>60); Glucose 131 mg/dL (80-110); HEMOLYSIS 20 (0-50); Potassium 4.4 mmol/L (3.4-5.1); Sodium 128 mmol/L (137-145)
[2020-05-30 13:38] LABS: Anisocytosis 2+; Hypochromasia 1+; Platelet Estimate Decreased on smear
== END ==
PROVIDERS: Family Provider Physician Assistant; PCP Physician Assistant; Visit Provider Physician Assistant
DX: D64.9 Anemia, unspecified (principal); R19.7 Diarrhea, unspecified; N39.0 Urinary tract infection, site not specified
CPT/HCPCS: 80048; 85025; 87077; 87086; 87186

== ENCOUNTER → 2020-10-11 20:24 | Outpatient (ROUT) | payer MEDICARE, SELFPAY ==
[2018-05-04 13:13] VITALS: BMI 33.3
== END ==
PROVIDERS: Family Provider Physician Assistant; PCP Physician Assistant; Visit Provider Physician Assistant
DX: N39.0 Urinary tract infection, site not specified (principal)
CPT/HCPCS: 87077; 87086; 87186